=== PATIENT | male | born 1955 | race Caucasian/White ===

== ENCOUNTER → 2017-03-09 | Outpatient (CLI) | payer BC ==
--- NOTE | ~2017-03-09 | ST ---
Unit #: [id number] #: [id number] Patient: KOFI HOOVER [id number] [address] [address] [id number] O MR#: [id number] NAME: KOFI HOOVER : 1955 SEX: M STUDY DATE/TIME: UNIT: [facility] ROOM: STUDY DESCRIPTION: Stress Test Attending Physician: Walt Elam M.D. Referring Physician: Walt Elam M.D. Primary Care Physician: Marcial Mixon M.D. CARDIOLOGY REPORT EXAM Dobutamine Stress Echo Ordered by Dr. Elam REASON FOR TEST Preop clearance for knee surgery. DESCRIPTION Baseline EKG shows sinus bradycardia, rate of 49 beats/minute. Nonspecific ST-T wave abnormalities noted. The patient was started on a dobutamine drip which was increased per protocol every three minutes. Resting heart rate was 49 beats per minute. Peak heart rate was 140 beats/minute. The patient's blood pressure ranged from 129/72 to 148/92. There were no significant EKG changes suggestive of ischemia. The patient did develop occasional PVCs but no sustained arrhythmias were noted. The patient was given 0.5 mg of atropine in order to achieve target heart rate. During the infusion, he did complain of his chest pounding and some mild shortness of breath, otherwise, no complaints were noted. The test was completed secondary to achieving target heart rate. IMPRESSION 1. Negative EKG portion of dobutamine stress test. 2. No ST-T wave changes suggestive of ischemia. 3. Occasional PVCs were noted during the infusion but no sustained arrhythmias. 4. The patient complained of his heart beating hard, some slight shortness of breath but otherwise no complaints of chest pain. 5. Blood pressure ranged from 129/76 to 154/97 with an ending blood pressure of 137/91. Peak heart rate achieved was 140 beats/minute. The patient was given 0.5 mg of atropine in order to achieve target heart rate. After the dobutamine was reached, max infusion amount of 40 mcg/kg. 6. Overall, the patient tolerated testing well. Dictated by... Unit #: [id number] #: [id number] Patient: KOFI HOOVER Eloise Lund A.P.R.N. LMW/mala TD: 03/10/2017 11:41 JOB #: [id number] CARDIOLOGY REPORT Page 1 of 1 X Eloise Lund APRN CARDIOLOGY REPORT
--- NOTE | ~2017-03-09 | ST ---
Unit #: [id number] #: [id number] Patient: KOFI HOOVER [id number] [facility]. [address] [address] [id number] O MR#: [id number] NAME: KOFI HOOVER : 1955 SEX: M STUDY DATE/TIME: UNIT: [facility] ROOM: STUDY DESCRIPTION: Stress Test Attending Physician: Walt Elam M.D. Referring Physician: Walt Elam M.D. Primary Care Physician: Marcial Mixon M.D. CARDIOLOGY REPORT EXAM Dobutamine Stress Echocardiogram - Dobutamine Portion Resting heart rate is 48, resting blood pressure is 124/77 mmHg. Baseline EKG shows marked sinus bradycardiac at a heart rate of 49 beats/minute. Q waves in lead III. Nonspecific T wave inversion in the lateral leads. PROCEDURE Baseline echocardiographic images were obtained in parasternal long two chamber and four chamber views. The left ventricular systolic function and wall motion was evaluated at baseline. The patient was started on a dobutamine drip at 10 mcg/kg/min. At every three minute intervals, the dobutamine infusion was increased, 20 mcg, 30 mcg, and 40 mcg/kg/min. The patient was given 0.5 mg of atropine for heart rate response. The patient tolerated the procedure well. Maximal heart rate obtained is 140 which is 88% of maximal predicted heart rate. Maximal blood pressure obtained is 148/92 mmHg. The patient had nonspecific T wave inversions noted in the inferior leads at peak dobutamine infusion. The patient had occasional single PVCs noted at peak infusion as well as during recovery. The T wave inversions resolved during recovery. Echocardiographic images were obtained at low dose, high dose, and during recovery. Left ventricular systolic function and wall motion was evaluated. CONCLUSION 1. Patient had nonspecific T wave inversions noted in the inferior leads at peak dobutamine infusion. 2. The patient had occasional single premature ventricular complexes noted at peak dobutamine infusion and during recovery. 3. Patient has normal left ventricular systolic function and normal wall motion noted at baseline. The patient had hypercontractility of the left ventricle and normal wall motion noted at low dose and high dose of dobutamine infusion. 4. Patient had normal left ventricular systolic function and wall motion noted during recovery. 5. Normal dobutamine stress echocardiogram with nonspecific T wave inversions note din the inferior leads at peak dobutamine infusion. Clinical correlation is requested. Dictated by..Mele Barton M.D. Unit #: [id number] #: [id number] Patient: SNEHA,KOFI BOWERS/mala TD: 03/10/2017 14:59 JOB #: [id number] CARDIOLOGY REPORT Page 1 of 1 X Mary Alice Barton MD <ELECTRONICALLY SIGNED> 06/16/17 2551 CARDIOLOGY REPORT
== END | disposition home or self-care (01) ==
LOC: CECH 09:54
DX: Z01.818 Encounter for other preprocedural examination (principal); R94.31 Abnormal electrocardiogram [ECG] [EKG]
CPT/HCPCS: 93351; J0461; J1250